=== PATIENT | female | born 1935 | race Caucasian/White ===

== ENCOUNTER 2018-03-10 14:37 | Inpatient (IN) | payer MEDICARE, SELFPAY ==
[2018-03-10] VITALS (8 sets, daily range): BP systolic 121–168; BP diastolic 65–105; PULSE 88–106; RESP 14–22; TEMP 36–36.9; O2SAT 92–99
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
[2018-03-10] MEDS: fentaNYL 100 MCG/2 ML VIAL IVP (15:29)
--- NOTE | 2018-03-10 15:34 | DI.RAD_ITS ---
SYMPTOM/DIAGNOSIS: ANKLE FX LEFT ANKLE: Three views. There is a fracture dislocation of the left ankle. There is a transverse comminuted fracture through the base of the medial malleolus. The distal fracture fragment is displaced one shaft's width laterally. There is a comminuted oblique fracture through the distal left fibula extending to the level of the ankle joint. The fracture is angulated and displaced one shaft's width laterally. There is lateral dislocation of the left ankle. The talus is dislocated laterally and is only covered half way by the tibia. There is also slight posterior displacement of the talus relative to the tibia. There is a question of deformity of the posterior malleolus suspicious for a displaced fracture. Spurs are seen at the posterior calcaneus. There is soft tissue swelling about the ankle. IMPRESSION: Fracture dislocation of the left ankle as described above.
[2018-03-10 15:35] LABS: Abs Immature Grans 0.05 k/cumm (0.0-0.09); Absolute Basophil Count 0.06 k/cumm (0.0-0.2); Absolute Lymphocyte Count 3.92 k/cumm (1.2-3.4); Absolute Monocyte Count 0.78 k/cumm (0.11-0.7); Basophils % 0.6; HCT 36.4 % (36.0-46.0); Immature Grans % 0.5; Lymphocytes % 39.2; Mean Corpuscular Hemoglobin 28.4 pg (27.0-33.0); Mean Corpuscular Volume 86.3 fL (80-95); Mean Platelet Volume 11.2 fL (8.0-11.0); Monocytes % 7.8; Neutrophils % 48.9; Platelet Count 252 x1000/uL (130-400); RBC 4.22 m/cumm (4.00-5.20); RBC Distribution Width 14.1 % (11.7-14.6); White Blood Cell Count 10.01 k/cumm (4.4-10.8)
[2018-03-10 15:54] LABS: PTT Activated 23.9 sec (21.0-31.4); Prothrombin Time 9.4 sec (9.3-10.8)
[2018-03-10 15:58] LABS: ALT 71 U/L (12-78); AST 34 U/L (15-37); Albumin 3.8 g/dL (3.4-5.0); Alkaline Phosphatase 69 U/L (46-116); Anion Gap 12.6 mmol/L (3-11); BUN 28 mg/dL (7-18); Bilirubin, Total 0.3 mg/dL (0.2-1.0); CO2 24.4 mmol/L (21.0-32.0); CREATININE 1.27 mg/dL (0.55-1.02); Calcium 9.1 mg/dL (8.5-10.1); Chloride 100 mmol/L (98-107); Estimated GFR 40.49 (mL/min/1.73m2); Glucose 195 mg/dL (70-100); Potassium 4.3 mmol/L (3.5-5.1); Sodium 137 mmol/L (136-145); Total Protein 7.1 g/dL (6.4-8.2)
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
--- NOTE | 2018-03-10 17:29 | DI.RAD_ITS ---
SYMPTOMS/DIAGNOSIS: ANKLE FX LEFT ANKLE IN THE OR: Fluoroscopy Time: 36.2secs Fluoroscopy was utilized by Dr. Delacruz during the reduction and internal fixation of the left ankle. Sideplate and screws are seen transfixing the reduced distal left fibular fracture. There are percutaneous pins seen transfixing the reduced medial malleolar fracture. The alignment of the ankle appears anatomic. Please refer to the procedure report for complete details.
[2018-03-10] MEDS: Lactated Ringers 1,000 ML 30 ML IV (17:59)
[2018-03-10] MEDS: Ketorolac 15 MG/ML VIAL IVP (22:03)
[2018-03-11] VITALS (8 sets, daily range): BP systolic 115–160; BP diastolic 60–81; PULSE 89–106; RESP 15–19; TEMP 36.4–37.8; O2SAT 95–98
[2018-03-11] MEDS: Acetaminophen 325 MG TAB 650 MG PO ×4 (00:57→23:47)
[2018-03-11] MEDS: Normal Saline Flush 10 ML SYR IVP ×3 (00:57→15:57)
[2018-03-11] MEDS: Normal Saline 1,000 ML 100 ML IV (00:57)
[2018-03-11] MEDS: Ketorolac 15 MG/ML VIAL IVP ×4 (04:25→21:54)
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
[2018-03-11] MEDS: Aspirin 81 MG CHEW PO (07:37)
[2018-03-11] MEDS: Losartan 25 MG TAB PO (07:37)
[2018-03-11] MEDS: Pantoprazole 40 MG TABCR PO (07:37)
[2018-03-11] MEDS: metFORMIN 500 MG TAB 1000 MG PO (07:37)
[2018-03-11] MEDS: Multivitamin w/Minerals TAB 1 TAB PO (07:37)
[2018-03-11] MEDS: Docusate Sodium 100 MG CAP PO ×2 (07:37→19:20)
[2018-03-11] MEDS: glyBURIDE 5 MG TAB PO (08:13)
--- NOTE | 2018-03-11 08:51 | PDOC.CMIN ---
Care Management Initial Assess REASON FOR HOSPITALIZATION:: Ankle Fx-repaired 03/10/[address] 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 She was raised in [place] and has some family still residing in the [place] area. Donna reports she has lived in the [facility] for the last fifty years. 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 She does not have family locally but reports many friends. She is outgoing and reports she wanted to try an [facility] at [facility] when she saw an advertisement in the local paper, which resulted in this injury requiring surgical intervention and admission for recovery. CURRENT FUNCTIONAL STATUS:: Donna is sitting in her chair when meets with her. She is pleasant in interaction and forthcoming with information. ADVANCE DIRECTIVES:: Document provided to Donna. Has patient been provided with information about the portal?: Yes Did the patient sign up for the portal?: No CODE STATUS:: Full Code INSURANCE COVERAGE / FINANCIAL ISSUES:: Medicare. AARP CURRENT HOME/COMMUNITY SERVICES/EQUIPMENT:: No current services or equipment; Donna reports a benign medical history. PRIMARY CARE PHYSICIAN:: Jamia Gaviria POTENTIAL DISCHARGE NEEDS:: PT/OT Consults, FWW, 3-in-1 commode, shower chair, evaluation for rehabiliation needs-likely [facility] PT/OT. PATIENT/FAMILY EDUCATION NEEDS:: Review discharge instructions, discuss Ask Me Three. ANTICIPATED BARRIERS TO DISCHARGE:: None identified. TRANSPORTATION:: Via private vehicle with a friend. PLAN:: Donna will be evaluated for further needs as she recovers from surgery and her pain is managed. Planning central to level of care upon eowswvifb-alqnv-ds-increased services at home. She will have recommendations for DME equipment which this database report writer will support coordination of. Donna reports she has a flight scheduled to return to [place] at the end of March and recovery will depend on changing these plans. She will transport via private vehicle with a friend dependent on disposition.
[2018-03-11] MEDS: Mylanta Suspension 30 ML CUP PO (09:29)
--- NOTE | 2018-03-11 11:42 | PT.INIE ---
Date of service: 03/11/18 Time of Service: 10:55 PT Notes Inpatient Physical Therapy Evaluation Date: 03/11/18 Referring Doctor: Luca Delacruz PT Orders: PT CONSULT: mobilize following ORIF of open trimalleolar fx L ankle. NWB L foot Precautions: Fall precautions, NWB L LE Patient Profile/Admitting Diagnosis: Pt is an 82yr old female s/p open reduction internal fixation left ankle by Dr. Delacruz 03/10/18 PMHX: see medical record Social History/Home Situation: Pt lives alone in a home, 3 steps with railing to enter, no steps inside. Baseline mobility independent gait with no device, independent with ADLS Equipment Owned/DME: none Subjective: Pt sitting in recliner chair visiting with her family. Agreeable to PT consult. Pt states she plans to go home from here and is not interested in a rehab stay. Objective: General Observation: cast L foot Mental Status: A&Ox3 Pain: no c/o pain Bed Mobility/Transfers: Sit-stand: SBA with FWW Stand-sit: SBA Gait: CGA with FWW 20ftx2 NWB L LE. Pt instructed in NWB precautions, pt able to take hop steps on R LE for gait. Pt returned to chair with left LE elevated after gait training. Balance: Static Sitting: normal Dynamic Sitting: normal Static Standing: poor Dynamic Standing: poor Special Tests: Mobility Limitations Standardized Measure [facility] AM-PAC 6 clicks Basic Mobility Inpatient Short Form: Raw Score: 17 Standardized Score: 42.13 CMS Score: 50.57% CMS Modifier: CK Informed Consent/Education: Patient instructed in purpose of PT consult and plan of care. Assessment: Pt is an 82yr old female s/p open reduction internal fixation left ankle by Dr. Delacruz 03/10/18. Patient presents with the following impairment level findings: decreased strength with standing transfers and gait mobility due to NWB status L LE and decreased static and dynamic standing balance putting her at risk for falls. Pt will benefit from in hospital and home PT. She will need a FWW for gait stability due to NWB L LE, she would benefit from 3in1 commode for safe toileting, shower chair for safe bathing and OT consult in hospital and in home setting for instruction in ADLS. Impairments are contributing to the following functional limitations: AMPAC score CMS Score: 50.57% Patient is assessed as a Moderate 11193 complexity based on the following: History: see above Examination: see above Presentation: evolving Decision Making: AMPAC score CMS Score: 50.57% Goals: Goals X1 week 1. Supine-Sit : independent 2. Sit-Supine : independent 3. Sit-Stand : supervision with FWW 4. Stand-Sit : supervision with FWW 5. Bed-Chair : supervision with FWW 6. Chair-Bed : supervision with FWW 7. Gait : supervision with FWW 30ft NWB L 8. Stairs up/down 3 steps with railing and cane, CGA Plan of Care/Treatment Plan: 1-2x/day, 7 days/week x 1 week. Plan of care has been reviewed with the COMMERCIAL BANKER providing the service under Physical Therapy direction. Initiate Physical Therapy intervention for strengthening, bed mobility, transfers, gait, stairs, balance training, use of assistive device. DISCHARGE RECOMMENDATIONS: Home with home PT/OT, commode, FWW, shower chair. * Pt will benefit from OT consult for in hospital setting for instruction in ADLS and dressing TREATMENT CODE/TIME: 25min IE 1055 G Codes in the area mobility of walking and moving around: current status [id number] CK; projected status GP [id number]. Discharge status (if discharging) GP [id number] CK based on AMPAC score CMS Score: 50.57% Ghislaine Morales PT
--- NOTE | 2018-03-11 11:57 | IN_ITS ---
Date of service: 03/11/18 Time of Service: 10:55 PT Notes Inpatient Physical Therapy Evaluation Date: 03/11/18 Referring Doctor: Luca Delacruz PT Orders: PT CONSULT: mobilize following ORIF of open trimalleolar fx L ankle. NWB L foot Precautions: Fall precautions, NWB L LE Patient Profile/Admitting Diagnosis: Pt is an 82yr old female s/p open reduction internal fixation left ankle by Dr. Delacruz 03/10/18 PMHX: see medical record Social History/Home Situation: Pt lives alone in a home, 3 steps with railing to enter, no steps inside. Baseline mobility independent gait with no device, independent with ADLS Equipment Owned/DME: none Subjective: Pt sitting in recliner chair visiting with her family. Agreeable to PT consult. Pt states she plans to go home from here and is not interested in a rehab stay. Objective: General Observation: cast L foot Mental Status: A&Ox3 Pain: no c/o pain Bed Mobility/Transfers: Sit-stand: SBA with FWW Stand-sit: SBA Gait: CGA with FWW 20ftx2 NWB L LE. Pt instructed in NWB precautions, pt able to take hop steps on R LE for gait. Pt returned to chair with left LE elevated after gait training. Balance: Static Sitting: normal Dynamic Sitting: normal Static Standing: poor Dynamic Standing: poor Special Tests: Mobility Limitations Standardized Measure [facility] AM-PAC 6 clicks Basic Mobility Inpatient Short Form: Raw Score: 17 Standardized Score: 42.13 CMS Score: 50.57% CMS Modifier: CK Informed Consent/Education: Patient instructed in purpose of PT consult and plan of care. Assessment: Pt is an 82yr old female s/p open reduction internal fixation left ankle by Dr. Delacruz 03/10/18. Patient presents with the following impairment level findings: decreased strength with standing transfers and gait mobility due to NWB status L LE and decreased static and dynamic standing balance putting her at risk for falls. Pt will benefit from in hospital and home PT. She will need a FWW for gait stability due to NWB L LE, she would benefit from 3in1 commode for safe toileting, shower chair for safe bathing and OT consult in hospital and in home setting for instruction in ADLS. Impairments are contributing to the following functional limitations: AMPAC score CMS Score: 50.57% Patient is assessed as a Moderate 44470 complexity based on the following: History: see above Examination: see above Presentation: evolving Decision Making: AMPAC score CMS Score: 50.57% Goals: Goals X1 week 1. Supine-Sit : independent 2. Sit-Supine : independent 3. Sit-Stand : supervision with FWW 4. Stand-Sit : supervision with FWW 5. Bed-Chair : supervision with FWW 6. Chair-Bed : supervision with FWW 7. Gait : supervision with FWW 30ft NWB L 8. Stairs up/down 3 steps with railing and cane, CGA Plan of Care/Treatment Plan: 1-2x/day, 7 days/week x 1 week. Plan of care has been reviewed with the ORGANIC CHEMISTRY PROFESSOR providing the service under Physical Therapy direction. Initiate Physical Therapy intervention for strengthening, bed mobility, transfers, gait, stairs, balance training, use of assistive device. DISCHARGE RECOMMENDATIONS: Home with home PT/OT, commode, FWW, shower chair. * Pt will benefit from OT consult for in hospital setting for instruction in ADLS and dressing TREATMENT CODE/TIME: 25min IE 1055 G Codes in the area mobility of walking and moving around: current status [id number] CK; projected status GP [id number]. Discharge status (if discharging) GP [id number] CK based on AMPAC score CMS Score: 50.57% Ghislaine Morales PT
--- NOTE | 2018-03-11 12:15 | INITIAL_ITS ---
Care Management Initial Assess REASON FOR HOSPITALIZATION:: Ankle Fx-repaired 03/10/[address] 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 She was raised in [place] and has some family still residing in the [place] area. Donna reports she has lived in the [facility] for the last fifty years. 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 She does not have family locally but reports many friends. She is outgoing and reports she wanted to try an [facility]BIKE at [facility] when she saw an advertisement in the local paper, which resulted in this injury requiring surgical intervention and admission for recovery. CURRENT FUNCTIONAL STATUS:: Donna is sitting in her chair when meets with her. She is pleasant in interaction and forthcoming with information. ADVANCE DIRECTIVES:: Document provided to Donna. Has patient been provided with information about the portal?: Yes Did the patient sign up for the portal?: No CODE STATUS:: Full Code INSURANCE COVERAGE / FINANCIAL ISSUES:: Medicare. AARP CURRENT HOME/COMMUNITY SERVICES/EQUIPMENT:: No current services or equipment; Donna reports a benign medical history. PRIMARY CARE PHYSICIAN:: Jamia Gaviria POTENTIAL DISCHARGE NEEDS:: PT/OT Consults, FWW, 3-in-1 commode, shower chair, evaluation for rehabiliation needs-likely [facility] PT/OT. PATIENT/FAMILY EDUCATION NEEDS:: Review discharge instructions, discuss Ask Me Three. ANTICIPATED BARRIERS TO DISCHARGE:: None identified. TRANSPORTATION:: Via private vehicle with a friend. PLAN:: Donna will be evaluated for further needs as she recovers from surgery and her pain is managed. Planning central to level of care upon discharge-rehab- vs-increased services at home. She will have recommendations for DME equipment which this senior copywriter will support coordination of. Donna reports she has a flight scheduled to return to [place] at the end of March and recovery will depend on changing these plans. She will transport via private vehicle with a friend dependent on disposition.
[2018-03-11 12:52] LABS: HCT 34.2 % (36.0-46.0); HGB 11.4 g/dL (12.0-15.5)
--- NOTE | 2018-03-11 14:01 | CHAPLAIN ---
Donna was sitting up in her chair when I visited. Her niece was with her and she has several more visitors later in the day. Donna was pleasant and easily engaged in a conversation. I introduced myself, explained my role and offered support.
--- NOTE | 2018-03-11 14:01 | PT.INTREAT ---
Date of service: 03/11/18 Time of Service: 14:50 PT Notes Inpatient Physical Therapy Treatment Note Date: 03/11/18 PRECAUTIONS: Fall precautions, NWB L LE SUBJECTIVE: Pt sitting in chair, agreeable to therapy session. States Dr. Delacruz told her she would be NWB for 6weeks. Pt states she is cancelling her trip to [place] and going to stay in the area through [facility]. Pt requesting a 4WW for mobility so she has the option of sitting and mobilizing around the home using her R leg with the 4WW. OBJECTIVE: General observation: cast/dressings L LE PAIN: no c/o pain BED MOBILITY/TRANSFERS Sit-stand: SBA with 4WW Stand-sit: SBA GAIT Assistive Device: 4WW Weight bearing: NWB L LE Assist: SBA Distance: 25ftx1, 1 sit rest, 25ftx1 Deviation: Pt instructed in components of 4WW. Instructed to apply brakes for all sit-stand transfers and to utilize brakes with gait to allow for stability with taking hop steps on R LE. Pt demonstrated ability to utilize 4WW with sit-stand transfers from chair and with gait short distances. Pt instructed in sit-stand transfers ON 4WW to be able to take sitting rest breaks and self propel with R LE around home. Pt was able to perform sit-stand from 4WW with cues for safety. Pt left up in recliner chair with LE elevated. ASSESSMENT: Pt is mobilizing well with transfers and gait with 4WW and FWW maintaining NWB L LE. Pt would benefit from FWW for transfers and gait mobility at night to bedside commode to reduce her risk of falls at night. She would be able to utilize 4WW in day setting, with application of brakes on 4WW at all times for safety, recommend use of sneaker on R LE for increased traction and stability on right foot to maintain balance. Pt will need FWW or 4WW for home mobility due to NWB status 4WW may be best to allow her to take rest breaks and self propel in sitting position in home setting, bedside commode, shower chair and home PT/OT for continued strengthening, training and mobility training is recommended. PLAN: Stair training in am Progress gait training with 4WW Transfer training with 4WW TREATMENT CODE/TIME: 27min [id number] Ghislaine Morales PT
--- NOTE | 2018-03-11 14:09 | PTTR_ITS ---
Date of service: 03/11/18 Time of Service: 14:50 PT Notes Inpatient Physical Therapy Treatment Note Date: 03/11/18 PRECAUTIONS: Fall precautions, NWB L LE SUBJECTIVE: Pt sitting in chair, agreeable to therapy session. States Dr. Delacruz told her she would be NWB for 6weeks. Pt states she is cancelling her trip to [place] and going to stay in the area through [facility]. Pt requesting a 4WW for mobility so she has the option of sitting and mobilizing around the home using her R leg with the 4WW. OBJECTIVE: General observation: cast/dressings L LE PAIN: no c/o pain BED MOBILITY/TRANSFERS Sit-stand: SBA with 4WW Stand-sit: SBA GAIT Assistive Device: 4WW Weight bearing: NWB L LE Assist: SBA Distance: 25ftx1, 1 sit rest, 25ftx1 Deviation: Pt instructed in components of 4WW. Instructed to apply brakes for all sit-stand transfers and to utilize brakes with gait to allow for stability with taking hop steps on R LE. Pt demonstrated ability to utilize 4WW with sit -stand transfers from chair and with gait short distances. Pt instructed in sit- stand transfers ON 4WW to be able to take sitting rest breaks and self propel with R LE around home. Pt was able to perform sit-stand from 4WW with cues for safety. Pt left up in recliner chair with LE elevated. ASSESSMENT: Pt is mobilizing well with transfers and gait with 4WW and FWW maintaining NWB L LE. Pt would benefit from FWW for transfers and gait mobility at night to bedside commode to reduce her risk of falls at night. She would be able to utilize 4WW in day setting, with application of brakes on 4WW at all times for safety, recommend use of sneaker on R LE for increased traction and stability on right foot to maintain balance. Pt will need FWW or 4WW for home mobility due to NWB status 4WW may be best to allow her to take rest breaks and self propel in sitting position in home setting, bedside commode, shower chair and home PT/OT for continued strengthening, training and mobility training is recommended. PLAN: Stair training in am Progress gait training with 4WW Transfer training with 4WW TREATMENT CODE/TIME: 27min TAx2 [id number] Ghislaine Morales PT
--- NOTE | 2018-03-11 14:16 | PHARADMIT ---
Admission Pharmacy Clinical Review displaced bimalleolar fracture of left ankle Code Status Full Code Current Weight 78 kg Renally Cleared and Narrow Therapeutic Index Meds Crcl ~36.5 mL/min using adjusted body weight current meds okay QTc Value / Action Taken BP Control, Fever BP 158/73 afebrile Electrolytes reviewed within normal limits DVT Prophylaxis none Opiate Usage / Scheduled Bowel Regimen Ordered prn/scheduled docusate Plt/SCr for Heparin / Enoxaparin plt 252 SCr 1.27 INR for Warfarin n/a H/H stable, WBC/Bands h/h 11.4/34.2 wbc 10.01 Antibiotic appropriateness cefazolin Cultures and Sensitivities none Surgical ABX d/c within 24 hr yes due to stop within 24 hours postop DM control / Insulin Dosing FSBG 133 glyburide and metformin ordered, no insulin Heart Failure (Check EF%) (DAGOBERTO's, B-Block, Diuretics) losartan IV to PO Switch n/a Home Meds Reviewed yes Home Meds Not Ordered cinnamon bark, flaxseed oil, omega-3 Comments
--- NOTE | 2018-03-11 14:47 | W.PM.PROGNOT ---
Assessment and Plan (1) Bimalleolar fracture of left ankle: Start date: 03/10/18 Start time: 14:50 Current visit: Yes Status: Acute Assessment: Stable postop day #1 irrigation and debridement of open trimalleolar fracture dislocation of the left ankle with ORIF. I do not know what to make of the abnormal stool she had today. Her preop hemoglobin was 12 g. She has no history of any bleeding disorder with a normal coagulation profile. Plan: We will check her hemoglobin today. If there is no significant drop in the hemoglobin, would just observe her and hematest her stools. We will give her IV antibiotics for another 24 hours for her open fracture. We will continue to mobilize with physical therapy nonweightbearing on the left. Would DC home when independent with transfers and taking only p.o. pain meds. Subjective Patient reports: feels better and tolerating a regular diet Interval history since last seen: She says her pain is well controlled. Exam Narrative Exam Narrative: Nurses reported that she had a gelatinous, red bowel movement today. Patient reported that this is not usual for her. Her preop hemoglobin was 12.0 g. She actively flexes and extends the toes of her left foot fully without pain. No swelling of the toes. Good light touch sensation to the toes. There is good capillary refill of the toes. Objective Objective Clinical Data: Abnormal lab results 03/10/18 03/10/18 03/11/18 Range/Units 15:05 15:05 12:40 Hgb 11.4 L (12.0-15.5) g/dL Hct 34.2 L (36.0-46.0) % MPV 11.2 H (8.0-11.0) fL Absolute Lymphocytes 3.92 H (1.2-3.4) k/cumm Absolute Monocytes 0.78 H (0.11-0.7) k/cumm Anion Gap 12.6 H (3-11) mmol/L BUN 28 H (7-18) mg/dL Creatinine 1.27 H (0.55-1.02) mg/dL Glucose 195 H (70-100) mg/dL Vital Signs Temperature 36.4 C L 03/11/18 11:20 Temperature Source Tympanic 03/11/18 11:20 Pulse 93 H 03/11/18 11:20 Pulse Rhythm Regular 03/11/18 07:35 Respiratory Rate 19 03/11/18 11:20 Respiratory Effort Non-Labored 03/11/18 07:35 Respiratory Depth Normal 03/11/18 07:35 Respiratory Pattern Normal 03/11/18 07:35 Blood Pressure 158/73 H 03/11/18 11:20 Blood Pressure Position Supine 03/10/18 15:21 Pulse Oximetry 97 03/11/18 11:20 Respiratory End-tidal CO2 41 03/10/18 20:30 Oxygen Delivery Method Room Air 03/11/18 11:20 Oxygen Flow Rate 0 03/11/18 11:20 End Tidal Co2 26 03/10/18 15:21 Pain Level 3 03/11/18 09:20 Intake & Output 03/10/18 03/11/18 03/11/18 23:59 11:59 23:59 Intake Total 642 / 642 1224.333 / 1224.333 240 / 240 Output Total 1050 / 1050 700 / 700 Balance -408 / -408 524.333 / 524.333 240 / 240 Weight 78 kg Intake: IV 642 / 642 824.333 / 824.333 Oral 400 / 400 240 / 240 Output: Urine 950 / 950 700 / 700 Estimated Blood Loss 100 / 100 Other: Urine Color Dark Sharona Yellow Urine Appearance Clear Clear Urine Odor None Comment Unknown amount of urine output as it was mixed with stool. Stool Size Moderate Large Stool Characteristics Soft Liquid Formed Brown Bloody Emesis Description None Voiding Methods Toilet Bedside Commode Laboratory Results WBC 10.01 k/cumm (4.4-10.8) 03/10/18 15:05 RBC 4.22 m/cumm (4.00-5.20) 03/10/18 15:05 Hgb 11.4 g/dL (12.0-15.5) L 03/11/18 12:40 Hct 34.2 % (36.0-46.0) L 03/11/18 12:40 MCV 86.3 fL (80-95) 03/10/18 15:05 MCH 28.4 pg (27.0-33.0) 03/10/18 15:05 MCHC 33.0 g/dL (32.0-36.0) 03/10/18 15:05 RDW 14.1 % (11.7-14.6) 03/10/18 15:05 Plt Count 252 x1000/uL (130-400) 03/10/18 15:05 MPV 11.2 fL (8.0-11.0) H 03/10/18 15:05 Immature Gran % 0.5 03/10/18 15:05 Neutrophils % 48.9 03/10/18 15:05 Lymphocytes % 39.2 03/10/18 15:05 Monocytes % 7.8 03/10/18 15:05 Eosinophils % 3.0 03/10/18 15:05 Basophils % 0.6 03/10/18 15:05 Absolute Neutrophils 4.90 k/cumm (1.2-6.7) 03/10/18 15:05 Absolute Lymphocytes 3.92 k/cumm (1.2-3.4) H 03/10/18 15:05 Absolute Monocytes 0.78 k/cumm (0.11-0.7) H 03/10/18 15:05 Absolute Eosinophils 0.30 k/cumm (0.0-0.7) 03/10/18 15:05 Absolute Basophils 0.06 k/cumm (0.0-0.2) 03/10/18 15:05 PT 9.4 sec (9.3-10.8) 03/10/18 15:05 INR 1.0 (1.0-3.5) 03/10/18 15:05 APTT 23.9 sec (21.0-31.4) 03/10/18 15:05 Sodium 137 mmol/L (136-145) 03/10/18 15:05 Potassium 4.3 mmol/L (3.5-5.1) 03/10/18 15:05 Chloride 100 mmol/L (98-107) 03/10/18 15:05 Carbon Dioxide 24.4 mmol/L (21.0-32.0) 03/10/18 15:05 Anion Gap 12.6 mmol/L (3-11) H 03/10/18 15:05 BUN 28 mg/dL (7-18) H 03/10/18 15:05 Creatinine 1.27 mg/dL (0.55-1.02) H 03/10/18 15:05 Estimated GFR/1.73 m2 40.49 (mL/min/1.73m2) 03/10/18 15:05 Glucose 195 mg/dL (70-100) H 03/10/18 15:05 Calcium 9.1 mg/dL (8.5-10.1) 03/10/18 15:05 Total Bilirubin 0.3 mg/dL (0.2-1.0) 03/10/18 15:05 AST 34 U/L (15-37) 03/10/18 15:05 ALT 71 U/L (12-78) 03/10/18 15:05 Alkaline Phosphatase 69 U/L (46-116) 03/10/18 15:05 Total Protein 7.1 g/dL (6.4-8.2) 03/10/18 15:05 Albumin 3.8 g/dL (3.4-5.0) 03/10/18 15:05 Patient ABO/Rh O Positive 03/10/18 15:05 Antibody Screen Negative 03/10/18 15:05
[2018-03-11] MEDS: Normal Saline 1,000 ML 60 ML IV (16:17)
[2018-03-12] MEDS: Ketorolac 15 MG/ML VIAL IVP ×2 (03:44→11:06)
[2018-03-12 03:48] VITALS: BP 142/80; PULSE 88; RESP 18; TEMP 37.2; O2SAT 96
[2018-03-12 07:50] VITALS: BP 156/74; PULSE 90; RESP 19; TEMP 36.5; O2SAT 95
--- NOTE | 2018-03-12 08:25 | PT.INTREAT ---
Date of service: 03/12/18 Time of Service: 08:26 PT Notes Inpatient Physical Therapy Treatment Note Date: 03/12/18 PRECAUTIONS: NWB on L, fall SUBJECTIVE: Eva states that she is feeling pretty good today, she was able to get good sleep last night. OBJECTIVE: PAIN: No complaints of pain BED MOBILITY/TRANSFERS Sit-stand: SBA Stand-sit: SBA GAIT Assistive Device: 4WW Weight bearing: NWB on L Assist: SBA Distance: 25' x2 Seated forward self-propulsion with 4WW 25' x2 with Min A ASSESSMENT: Patient tolerated session without complaints of pain. She fatigues with gait training due to weight bear status. Patient practiced seated forward self propulsion using 4WW, requiring Min A. PLAN: Continue with PTs POC TREATMENT CODE/TIME: 25 minutes; TA x2
[2018-03-12] MEDS: Docusate Sodium 100 MG CAP PO ×2 (08:26→13:53)
[2018-03-12] MEDS: Aspirin 81 MG CHEW PO (08:26)
[2018-03-12] MEDS: Losartan 25 MG TAB PO (08:27)
[2018-03-12] MEDS: Pantoprazole 40 MG TABCR PO (08:27)
[2018-03-12] MEDS: metFORMIN 500 MG TAB 1000 MG PO (08:27)
[2018-03-12] MEDS: glyBURIDE 5 MG TAB PO (08:27)
[2018-03-12] MEDS: Multivitamin w/Minerals TAB 1 TAB PO (08:27)
[2018-03-12 09:30] VITALS: O2SAT 95
[2018-03-12] MEDS: Normal Saline 1,000 ML 60 ML IV (11:06)
[2018-03-12 11:30] VITALS: BP 149/71; PULSE 85; RESP 18; TEMP 36.8; O2SAT 96
--- NOTE | 2018-03-12 12:24 | W.PM.DS.N ---
Date of service: 03/12/18 Time of Service: 12:25 DS: Diagnosis Discharge Diagnosis (1) Bimalleolar fracture of left ankle: Status: Ruled-out Discharge Plan Disposition Patient Disposition: HOME Condition: Good Discharge Details Chief Complaint: Orthopedic Reason For Visit: OPEN TRIMALLEOLAR FX/DISLOCATION L ANKLE Admit Date/Time: 03/10/18 19:48 Admit Provider: Luca Delacruz Attending Provider: Luca Delacruz Primary Care Provider: Jamia Gaviria ED Provider: Humera Bro Hospital Course Hospital Course: Patient was taken to the operating room on the day of admission 03/10/2018 for irrigation and debridement of open trimalleolar fracture of her left ankle, followed by open reduction and internal fixation of the trimalleolar fracture. She was admitted for pain control and IV antibiotics for 48 hours. She remained afebrile throughout her hospital course. She required very little postop analgesics. She was surprised by how little pain she experienced peer area. By 2 PM on 03/12/2018 she had completed 48 hours of IV antibiotics. She was afebrile she was afebrile and requiring very little pain medicines. She had completed her acute care phase of her hospitalization and I thought she was safe to be discharged home. Home Meds and New Rx's Prescriptions: New hydrocodone-acetaminophen 5-325 mg tablet 1 tab PO Q6H PRN (Reason: pain) Qty: 14 RF: 0 ibuprofen 600 mg tablet 600 mg PO TID Qty: 30 RF: 0 Continue glyburide 5 mg Tablet 5 mg PO DAILY RF: 0 metformin 1,000 mg Tablet 1,000 mg PO DAILY RF: 0 losartan 25 mg Tablet RF: 0 flaxseed oil 1,000 mg Capsule RF: 0 aspirin 81 mg Tablet,Chewable RF: 0 cinnamon bark [Cinnamon] 500 mg Capsule RF: 0 omega 4-csr-cvr-fish oil [Fish Oil] 1,000 mg (120 mg-180 mg) Capsule RF: 0 atjfwmem-gjsl-MC-calcium-mins [Women's One Daily] 18 mg iron-400 mcg-500 mg Ca Tablet RF: 0 Discharge Instructions Additional Instructions: Elevate L ankle on 1-2 pillows when sitting. Use walker to walk. Don't step on L foot. May rest splint on floor for balance when standing.(i.e. when brushing your teeth) Keep splint and dressings dry and intact until return. Return to 's office next 03/20/18. Take ibuprofen 3 times/day as prescribed. Take hydrocodone for breakthru pain, every 6 hours, if needed. Referrals: Jamia Gaviria [Primary Care Provider] - 03/24/18 2:55 pm Luca Delacruz MD [ [facility] STAFF PHYSICIAN] - 03/20/18 10:00 am Activity:: Activity as Tolerated Equipment/Supplies:: Walker Diet:: As Tolerated Discharge Orders Discharge Orders: Discharge Order (Routine); Ordered 03/12/18 Ordered By: Luca Delacruz DS: Data Vitals/I&O Vitals and I&O: Vital Signs Temperature 36.8 C 03/12/18 11:30 Temperature Source Tympanic 03/12/18 11:30 Pulse 85 03/12/18 11:30 Pulse Rhythm Regular 03/12/18 10:00 Respiratory Rate 18 03/12/18 11:30 Respiratory Effort Non-Labored 03/12/18 10:00 Respiratory Depth Normal 03/12/18 10:00 Respiratory Pattern Normal 03/12/18 10:00 Blood Pressure 149/71 H 03/12/18 11:30 Blood Pressure Position Supine 03/10/18 15:21 Pulse Oximetry 96 03/12/18 11:30 Respiratory End-tidal CO2 41 03/10/18 20:30 Oxygen Delivery Method Room Air 03/12/18 11:30 Oxygen Flow Rate 0 03/12/18 11:30 End Tidal Co2 26 03/10/18 15:21 Pain Level 3 03/12/18 11:30 Intake & Output 03/11/18 03/12/18 03/12/18 23:59 11:59 23:59 Intake Total 1487.667 / 1487.667 929 / 929 Output Total 1400 / 1400 500 / 500 Balance 87.667 / 87.667 429 / 429 Intake: IV 557.667 / 557.667 929 / 929 Oral 930 / 930 Output: Urine 1400 / 1400 500 / 500 Other: Urine Color Mignon Yellow Urine Appearance Hematuria Clear Urine Odor Strong Voiding Methods Bedside Commode Bedside Commode Labs on day of discharge: Labs from last 24 hours 03/11/18 12:40 Hgb 11.4 L Hct 34.2 L
--- NOTE | 2018-03-12 12:29 | DSE_ITS ---
Date of service: 03/12/18 Time of Service: 12:25 DS: Diagnosis Discharge Diagnosis (1) Bimalleolar fracture of left ankle: Status: Ruled-out Discharge Plan Disposition Patient Disposition: HOME Condition: Good Discharge Details Chief Complaint: Orthopedic Reason For Visit: OPEN TRIMALLEOLAR FX/DISLOCATION L ANKLE Admit Date/Time: 03/10/18 19:48 Admit Provider: Luca Delacruz Attending Provider: Luca Delacruz Primary Care Provider: Jamia Gaviria ED Provider: Humera Bro Hospital Course Hospital Course: Patient was taken to the operating room on the day of admission 03/10/2018 for irrigation and debridement of open trimalleolar fracture of her left ankle, followed by open reduction and internal fixation of the trimalleolar fracture. She was admitted for pain control and IV antibiotics for 48 hours. She remained afebrile throughout her hospital course. She required very little postop analgesics. She was surprised by how little pain she experienced peer area. By 2 PM on 03/12/2018 she had completed 48 hours of IV antibiotics. She was afebrile she was afebrile and requiring very little pain medicines. She had completed her acute care phase of her hospitalization and I thought she was safe to be discharged home. Home Meds and New Rx's Prescriptions: New hydrocodone-acetaminophen 5-325 mg tablet 1 tab PO Q6H PRN (Reason: pain) Qty: 14 RF: 0 ibuprofen 600 mg tablet 600 mg PO TID Qty: 30 RF: 0 Continue glyburide 5 mg Tablet 5 mg PO DAILY RF: 0 metformin 1,000 mg Tablet 1,000 mg PO DAILY RF: 0 losartan 25 mg Tablet RF: 0 flaxseed oil 1,000 mg Capsule RF: 0 aspirin 81 mg Tablet,Chewable RF: 0 cinnamon bark [Cinnamon] 500 mg Capsule RF: 0 omega 7-aqz-beo-fish oil [Fish Oil] 1,000 mg (120 mg-180 mg) Capsule RF: 0 qvjnzsny-rdfa-ZQ-calcium-mins [Women's One Daily] 18 mg iron-400 mcg-500 mg Ca Tablet RF: 0 Discharge Instructions Additional Instructions: Elevate L ankle on 1-2 pillows when sitting. Use walker to walk. Don't step on L foot. May rest splint on floor for balance when standing.(i.e. when brushing your teeth) Keep splint and dressings dry and intact until return. Return to 's office next 03/20/18. Take ibuprofen 3 times/day as prescribed. Take hydrocodone for breakthru pain, every 6 hours, if needed. Referrals: Jamia Gaviria [Primary Care Provider] - 03/24/18 2:55 pm Luca Delacruz MD [ [facility] STAFF PHYSICIAN] - 03/20/18 10:00 am Activity:: Activity as Tolerated Equipment/Supplies:: Walker Diet:: As Tolerated Discharge Orders Discharge Orders: Discharge Order (Routine); Ordered 03/12/18 Ordered By: Luca Delacruz DS: Data Vitals/I&O Vitals and I&O: Vital Signs Temperature 36.8 C 03/12/18 11:30 Temperature Source Tympanic 03/12/18 11:30 Pulse 85 03/12/18 11:30 Pulse Rhythm Regular 03/12/18 10:00 Respiratory Rate 18 03/12/18 11:30 Respiratory Effort Non-Labored 03/12/18 10:00 Respiratory Depth Normal 03/12/18 10:00 Respiratory Pattern Normal 03/12/18 10:00 Blood Pressure 149/71 H 03/12/18 11:30 Blood Pressure Position Supine 03/10/18 15:21 Pulse Oximetry 96 03/12/18 11:30 Respiratory End-tidal CO2 41 03/10/18 20:30 Oxygen Delivery Method Room Air 03/12/18 11:30 Oxygen Flow Rate 0 03/12/18 11:30 End Tidal Co2 26 03/10/18 15:21 Pain Level 3 03/12/18 11:30 Intake & Output 03/11/18 03/12/18 03/12/18 23:59 11:59 23:59 Intake Total 1487.667 / 1487.667 929 / 929 Output Total 1400 / 1400 500 / 500 Balance 87.667 / 87.667 429 / 429 Intake: IV 557.667 / 557.667 929 / 929 Oral 930 / 930 Output: Urine 1400 / 1400 500 / 500 Other: Urine Color Braxton Yellow Urine Appearance Hematuria Clear Urine Odor Strong Voiding Methods Bedside Commode Bedside Commode Labs on day of discharge: Labs from last 24 hours 03/11/18 12:40 Hgb 11.4 L Hct 34.2 L
--- NOTE | 2018-03-12 12:56 | OT.INIE ---
Occupational Therapy Notes Inpatient Occupational Therapy Evaluation Date: 03/12/18 Referring Doctor:Luca Delacruz MD OT Orders: Per PT, please have OT see her. Precautions:Fall precautions, NWB L LE PATIENT PROFILE/ADMITTING DIAGNOSIS: Pt is am 82 year old female seen for OT consult s/p open reduction internal fixation left ankle by Dr. Delacruz 03/10/18. Past Medical History: See EMR Social History/Home Situation: Pt reports that she lives alone in a home in [place]. She has 3 steps with railing to enter, no steps inside. She reports that her baseline ADL/IADL function was (I). She has a walk in shower with tile floor for her bathroom set up. Equipment owned/DME: None SUBJECTIVE: Pt sitting in chair when OT arrived with (L) leg elevated. Pt reports that she is going home later today and that she thinks she will feel better once she gets there. OBJECTIVE: General Observation: Cast (L) foot, IV (L) UE Mental Status: A&Ox3 Pain: no c/o pain ROM: RUE WNL L UE WNL STRENGTH: RUE 5 out of 5 throughout LUE 5 out of 5 throughout SENSATION: Patient reports no numbness or tingling in bilateral upper extremities. FUNCTIONAL MOBILITY/ADLS: Sit-Stand S, FWW Stand-sit S, FWW DRESSING Dressing LE with min assist to patient able to perform lower extremity dressing and underwear with minimal verbal cues. Patient provided a data warehouse specialist to assist with pulling up of pain. Patient also provided written and illustrated handout and dressing techniques in the sitting position in the chair. Patient able to demonstrate ideal technique. TOILETING: On commode, patient independently able to perform toileting routine and hygiene. BALANCE: Static sitting normal Dynamic Sitting normal Static Standing good based on weight bearing precautions Dynamic Standing good based on weight bearing precautions SPECIAL TESTS: Daily Activity Limitations Standardized Measure [facility] AM -PAC ?6 clicks? Daily Activity Inpatient Short Form: Raw score: 22 standardized score: 47.10 CMS score: 25.80% CMS modifier: CJ INFORMED CONSENT/EDUCATION: Pt instructed in purpose of OT Consult and plan of care. ASSESSMENT: Pt is an 82 year old female s/p open reduction internal fixation left ankle by Dr. Delacruz 03/10/18. Patient was seen for OT consult only demonstrating decreased need for verbal cues to perform ADL routine. Patient educated on use of data warehouse specialist for lower extremity dressing which she demonstrated with ideal technique. Patient denies need for home OT/PT services at this time. Patient would benefit from bed side commode as she is nonweightbearing to left lower extremity due to decreased functional activity tolerance. This would provide a safe toileting routine for patient. Patient would also benefit from shower chair or bench for safe bathing patient has tile floor and walk in shower. OT also recommends patient use FWW for non weight bearing precautions. Patient reports that he has throw rugs in her home OT educated patient on increased fall risks due to rugs. Patient receptive to information however states that she does not plan to get red of her rugs at this time. OT also educated patient on home in energy conservation and kitchen. Patient was receptive to information however slight denial that ADL routine with be different than prior. OT provided patient with written and illustrated handout on functional mobility in the kitchen with front-wheeled walker and energy conservation techniques.Patient no longer requires skilled OT services. Recommend patient to return home with use of adaptive equipment to increase independence and safe ADL/IADL routines. D/C OT services at this time. AMPAC score 22, CMS score 25.80% Patient is assessed as a Low 35762 complexity based on the following: History: See EMR Examination: See above Presentation: Evolving Decision Making: AMPAC score 22, CMS score 25.80% GOALS N/A PLAN OF CARE/TREATMENT PLAN: DISCHARGE RECOMMENDATIONS home with use of adaptive equipment. TREATMENT TIME/MINUTES/CODES 38-minute IE, 09:17 G Codes in the area of self- : washing oneself, toileting, dressing, eating and drinking, current status [id number] projected status GP [id number]. Discharge status GP [id number]
--- NOTE | 2018-03-12 13:16 | OTIE_ITS ---
Occupational Therapy Notes Inpatient Occupational Therapy Evaluation Date: 03/12/18 Referring Doctor:Luca Delacruz MD OT Orders: Per PT, please have OT see her. Precautions:Fall precautions, NWB L LE PATIENT PROFILE/ADMITTING DIAGNOSIS: Pt is am 82 year old female seen for OT consult s/p open reduction internal fixation left ankle by Dr. Delacruz 03/10/18. Past Medical History: See EMR Social History/Home Situation: Pt reports that she lives alone in a home in [place]. She has 3 steps with railing to enter, no steps inside. She reports that her baseline ADL/IADL function was (I). She has a walk in shower with tile floor for her bathroom set up. Equipment owned/DME: None SUBJECTIVE: Pt sitting in chair when OT arrived with (L) leg elevated. Pt reports that she is going home later today and that she thinks she will feel better once she gets there. OBJECTIVE: General Observation: Cast (L) foot, IV (L) UE Mental Status: A&Ox3 Pain: no c/o pain ROM: RUE WNL L UE WNL STRENGTH: RUE 5 out of 5 throughout LUE 5 out of 5 throughout SENSATION: Patient reports no numbness or tingling in bilateral upper extremities. FUNCTIONAL MOBILITY/ADLS: Sit-Stand S, FWW Stand-sit S, FWW DRESSING Dressing LE with min assist to patient able to perform lower extremity dressing and underwear with minimal verbal cues. Patient provided a mixed crop farmer to assist with pulling up of pain. Patient also provided written and illustrated handout and dressing techniques in the sitting position in the chair. Patient able to demonstrate ideal technique. TOILETING: On commode, patient independently able to perform toileting routine and hygiene. BALANCE: Static sitting normal Dynamic Sitting normal Static Standing good based on weight bearing precautions Dynamic Standing good based on weight bearing precautions SPECIAL TESTS: Daily Activity Limitations Standardized Measure [facility] AM -PAC ?6 clicks? Daily Activity Inpatient Short Form: Raw score: 22 standardized score: 47.10 CMS score: 25.80 % CMS modifier: CJ INFORMED CONSENT/EDUCATION: Pt instructed in purpose of OT Consult and plan of care. ASSESSMENT: Pt is an 82 year old female s/p open reduction internal fixation left ankle by Dr. Delacruz 03/10/18. Patient was seen for OT consult only demonstrating decreased need for verbal cues to perform ADL routine. Patient educated on use of mixed crop farmer for lower extremity dressing which she demonstrated with ideal technique. Patient denies need for home OT/PT services at this time. Patient would benefit from bed side commode as she is nonweightbearing to left lower extremity due to decreased functional activity tolerance. This would provide a safe toileting routine for patient. Patient would also benefit from shower chair or bench for safe bathing patient has tile floor and walk in shower. OT also recommends patient use FWW for non weight bearing precautions. Patient reports that he has throw rugs in her home OT educated patient on increased fall risks due to rugs. Patient receptive to information however states that she does not plan to get red of her rugs at this time. OT also educated patient on home in energy conservation and kitchen. Patient was receptive to information however slight denial that ADL routine with be different than prior. OT provided patient with written and illustrated handout on functional mobility in the kitchen with front-wheeled walker and energy conservation techniques.Patient no longer requires skilled OT services. Recommend patient to return home with use of adaptive equipment to increase independence and safe ADL/IADL routines. D/C OT services at this time. AMPAC score 22, CMS score 25.80% Patient is assessed as a Low 49785 complexity based on the following: History: See EMR Examination: See above Presentation: Evolving Decision Making: AMPAC score 22, CMS score 25.80% GOALS N/A PLAN OF CARE/TREATMENT PLAN: DISCHARGE RECOMMENDATIONS home with use of adaptive equipment. TREATMENT TIME/MINUTES/CODES 38-minute IE, 09:17 G Codes in the area of self- : washing oneself, toileting, dressing, eating and drinking, current status [id number] projected status GP [id number]. Discharge status GP [id number]
--- NOTE | 2018-03-12 13:16 | W.PM.DS.N ---
DS: Diagnosis Discharge Diagnosis (1) Bimalleolar fracture of left ankle: Status: Ruled-out Discharge Plan Disposition Patient Disposition: HOME Condition: Good Discharge Details Chief Complaint: Orthopedic Reason For Visit: OPEN TRIMALLEOLAR FX/DISLOCATION L ANKLE Admit Date/Time: 03/10/18 19:48 Admit Provider: Luca Delacruz Attending Provider: Luca Delacruz Primary Care Provider: Jamia Gaviria ED Provider: Humera Bro Hospital Course Hospital Course: Patient was taken to the operating room on the day of admission 03/10/2018 for irrigation and debridement of open trimalleolar fracture of her left ankle, followed by open reduction and internal fixation of the trimalleolar fracture. She was admitted for pain control and IV antibiotics for 48 hours. She remained afebrile throughout her hospital course. She required very little postop analgesics. She was surprised by how little pain she experienced peer area. By 2 PM on 03/12/2018 she had completed 48 hours of IV antibiotics. She was afebrile she was afebrile and requiring very little pain medicines. She had completed her acute care phase of her hospitalization and I thought she was safe to be discharged home. Home Meds and New Rx's Prescriptions: New hydrocodone-acetaminophen 5-325 mg tablet 1 tab PO Q6H PRN (Reason: pain) Qty: 14 RF: 0 ibuprofen 600 mg tablet 600 mg PO TID Qty: 30 RF: 0 Continue glyburide 5 mg Tablet 5 mg PO DAILY RF: 0 metformin 1,000 mg Tablet 1,000 mg PO DAILY RF: 0 losartan 25 mg Tablet RF: 0 flaxseed oil 1,000 mg Capsule RF: 0 aspirin 81 mg Tablet,Chewable RF: 0 cinnamon bark [Cinnamon] 500 mg Capsule RF: 0 omega 4-cls-den-fish oil [Fish Oil] 1,000 mg (120 mg-180 mg) Capsule RF: 0 xapnmonx-olxb-JG-calcium-mins [Women's One Daily] 18 mg iron-400 mcg-500 mg Ca Tablet RF: 0 Discharge Instructions Instructions: ORIF of an Ankle Fracture (DC) Additional Instructions: Elevate L ankle on 1-2 pillows when sitting. Use walker to walk. Don't step on L foot. May rest splint on floor for balance when standing.(i.e. when brushing your teeth) Keep splint and dressings dry and intact until return. Return to 's office next 03/26/18. Take ibuprofen 3 times/day as prescribed. Take hydrocodone for breakthru pain, every 6 hours, if needed. Stand Alone Forms: Nursing Discharge Form Referrals: Jamia Gaviria [Primary Care Provider] - 03/24/18 2:55 pm Luca Delacruz MD [ [facility] STAFF PHYSICIAN] - 03/26/18 10:45 am Activity:: Activity as Tolerated Equipment/Supplies:: 3 in 1 commode/shower chair Diet:: As Tolerated Discharge Orders Discharge Orders: Discharge Order (Routine); Ordered 03/12/18 Ordered By: Luca Delacruz Discharge Data Discharge Date/Time-TO BE ENTERED AT DEPARTURE: 03/12/18 15:30 DS: Data Vitals/I&O Vitals and I&O: Vital Signs Temperature 36.8 C 03/12/18 11:30 Temperature Source Tympanic 03/12/18 11:30 Pulse 85 03/12/18 11:30 Pulse Rhythm Regular 03/12/18 10:00 Respiratory Rate 18 03/12/18 11:30 Respiratory Effort Non-Labored 03/12/18 10:00 Respiratory Depth Normal 03/12/18 10:00 Respiratory Pattern Normal 03/12/18 10:00 Blood Pressure 149/71 H 03/12/18 11:30 Blood Pressure Position Supine 03/10/18 15:21 Pulse Oximetry 96 03/12/18 11:30 Respiratory End-tidal CO2 41 03/10/18 20:30 Oxygen Delivery Method Room Air 03/12/18 11:30 Oxygen Flow Rate 0 03/12/18 11:30 End Tidal Co2 26 03/10/18 15:21 Pain Level 3 03/12/18 11:30 Intake & Output 03/11/18 03/12/18 03/12/18 23:59 11:59 23:59 Intake Total 1487.667 / 1487.667 929 / 929 250 / 250 Output Total 1400 / 1400 500 / 500 Balance 87.667 / 87.667 429 / 429 250 / 250 Intake: IV 557.667 / 557.667 929 / 929 Oral 930 / 930 250 / 250 Output: Urine 1400 / 1400 500 / 500 Other: Urine Color [place] Yellow Urine Appearance Hematuria Clear Urine Odor Strong Voiding Methods Bedside Commode Bedside Commode
--- NOTE | 2018-03-12 13:17 | PDOC.HHF2F ---
1. Encounter Date and Reason I certify that ANTONIO NOGUERA was seen by Luca Delacruz on 03/12/18 and that I had a [id number] encounter with this patient that meets the physician face to face encounter requirements. 2. Clinical Findings Supporting Skilled Need and Homebound Status I certify that home health services are medically necessary, include either intermittent shelter and/or physical/speech therapy, and that this patient is homebound in that absences from the home require considerable and taxing effort and are infrequent or of short duration, or are attributable to the need to receive medical care. [X] (a) Attached documentation from encounter provides clinical findings supporting skilled need and homebound status (including what assistance patient requires to leave the home). The encounter with the patient was in whole, or in part, for the following medical condition, which is the primary reason for home health care: OPEN TRIMALLEOLAR FX/DISLOCATION L ANKLE [facility]itent[facility]: Physical Therapy: and Occupational therapy Speech Therapy: Homebound:NWB on L leg due to trimalleolar fx ankle. Can't drive. Lives alone. 3. Certification and Authentication I certify that I composed the above information based on my clinical judgement relating to this patient's medical condition and, if applicable, clinical findings communicated to me by the NPP or inpatient physician who performed the Home Health Referral. All further orders will be obtained through (Community Based Physician - PCP)
--- NOTE | 2018-03-12 14:23 | PDOC.CMDIS ---
LACE Index Scoring Tool - Questions: Length of Stay (in days): 3 Acuity (Admit via E.D.?): Yes Comorbidities: Diabetes w/o Complication, Any Tumor E.D. Visits: 1 - Answers: Total Score: 10 Risk of Readmission: High Risk Care Management Discharge Reason for Hospitalization: Ankle Fx-repaired 03/10/[address] Delacruz Discharge Plan: Donna will return home when ready per MD. She will follow up with Dr. Delacruz, her PCP and her plan of care as prescribed including NWB status and equipment recommendations to include shower chair, 3 in 1 commode and FWW. She will also have new orders for [facility] PT[facility]; CM faxed referral and orders to the [facility]. Donna will transport home via private vehicle with a friend. Patient/Family Education Needs: Review discharge instructions, review of DME coordination-patient choice and insurance limitations, discuss Ask Me Three. Services Needed at Discharge: DME Agency (FWW, review of patient choice and insurance limitations for recommended bathroom equipment. ), Home Health Care Services (PT/OT)
--- NOTE | 2018-03-12 14:27 | CMDISCH_ITS ---
LACE Index Scoring Tool - Questions: Length of Stay (in days): 3 Acuity (Admit via E.D.?): Yes Comorbidities: Diabetes w/o Complication, Any Tumor E.D. Visits: 1 - Answers: Total Score: 10 Risk of Readmission: High Risk Care Management Discharge Reason for Hospitalization: Ankle Fx-repaired 03/10/[address] Delacruz Discharge Plan: Donna will return home when ready per MD. She will follow up with Dr. Delacruz, her PCP and her plan of care as prescribed including NWB status and equipment recommendations to include shower chair, 3 in 1 commode and FWW. She will also have new orders for [facility]; CM faxed referral and orders to the [facility]. Donna will transport home via private vehicle with a friend. Patient/Family Education Needs: Review discharge instructions, review of DME coordination-patient choice and insurance limitations, discuss Ask Me Three. Services Needed at Discharge: DME Agency (FWW, review of patient choice and insurance limitations for recommended bathroom equipment. ), Home Health Care Services (PT/OT)
--- NOTE | 2018-03-12 15:53 | PT.INTREAT ---
Date of service: 03/12/18 Time of Service: 15:53 PT Notes Inpatient Physical Therapy Treatment Note Date: 03/12/18 PRECAUTIONS: Fall, NWB on L SUBJECTIVE: Donna states that she feels like she is ready to go home. She reports that she has a friend bringing her commode to her home and a 4WW for her to use. OBJECTIVE: PAIN: No complaints of pain BED MOBILITY/TRANSFERS Sit-stand: S Stand-sit: S GAIT Assistive Device: FWW Weight bearing: NWB on L Assist: SBA Distance: 25'x2 STAIRS: Up/down 3 x 4using B rails and a hop to pattern with CGA/Min A; up/down 3 x 4 using 1 rail/SPC and a hop to pattern with CGA/Min A ASSESSMENT: Patient tolerated session without complaints of pain. She participated in stair training requiring CGA/Min A and cueing for technique for safety. Patient would benefit from continued gait and transfer training as well as stair training for improved ability to perform daily functional tasks. PLAN: Continue with PT's POC TREATMENT CODE/TIME: 30 minutes; TAx2
--- NOTE | 2018-03-12 15:57 | PTTR_ITS ---
Date of service: 03/12/18 Time of Service: 15:53 PT Notes Inpatient Physical Therapy Treatment Note Date: 03/12/18 PRECAUTIONS: Fall, NWB on L SUBJECTIVE: Donna states that she feels like she is ready to go home. She reports that she has a friend bringing her commode to her home and a 4WW for her to use. OBJECTIVE: PAIN: No complaints of pain BED MOBILITY/TRANSFERS Sit-stand: S Stand-sit: S GAIT Assistive Device: FWW Weight bearing: NWB on L Assist: SBA Distance: 25'x2 STAIRS: Up/down 3 x 4using B rails and a hop to pattern with CGA/Min A; up/ down 3 x 4 using 1 rail/SPC and a hop to pattern with CGA/Min A ASSESSMENT: Patient tolerated session without complaints of pain. She participated in stair training requiring CGA/Min A and cueing for technique for safety. Patient would benefit from continued gait and transfer training as well as stair training for improved ability to perform daily functional tasks. PLAN: Continue with PT's POC TREATMENT CODE/TIME: 30 minutes; TAx2
--- NOTE | 2018-03-13 07:42 | PT.INDS ---
Date of service: 03/13/18 Time of Service: 07:42 PT Notes Inpatient Physical Therapy Discharge Summary Date: 03/13/18 for 03/12/18 Dates of Service: 03/11/18-03/12/18 SUBJECTIVE: NT OBJECTIVE: 03/11/18-03/12/18 Bed Mobility/Transfers: Sit-stand: supervision with FWW Stand-sit: supervision Gait: SBA with FWW 25ftx2 NWB L LE. Stairs: up/down 3 steps with railing and cane CGA/MinAx1 Balance: Static Sitting: normal Dynamic Sitting: normal Static Standing: poor Dynamic Standing: poor Assessment: Pt is an 82yr old female s/p open reduction internal fixation left ankle by Dr. Delacruz 03/10/18. Patient was seen for 4 PT visits. Progressed from SBA standing transfers to supervision with FWW, from CGA gait with FWW 20ftx2 NWB L LE to SBA gait with FWW 25ftx2 NWB LLE, pt able to ascend/descend 3 steps with railing and cane with CGA/MinAx1. Pt was discharged to home setting, home PT recommended to continue strengthening and mobility training. Goals: Goals X1 week 1. Supine-Sit : independent 2. Sit-Supine : independent 3. Sit-Stand : supervision with FWW 4. Stand-Sit : supervision with FWW 5. Bed-Chair : supervision with FWW 6. Chair-Bed : supervision with FWW 7. Gait : supervision with FWW 30ft NWB L 8. Stairs up/down 3 steps with railing and cane, CGA Pt met goals # 3, 4, 8 prior to discharge DISCHARGE RECOMMENDATIONS: Home with home PT/OT, commode, FWW, shower chair. G Codes in the area mobility of walking and moving around:projected status GP [id number]. Discharge status (if discharging) GP [id number] CK Ghislaine Morales PT
== END 2018-03-12 15:30 | disposition home or self-care (01) | DRG 493 ==
LOC: ER 17:19 → SUR 18:00 → MS 21:27
PROVIDERS: Admitting Provider Orthopaedic Surgery; Emergency Provider Physician Assistant; PCP Nurse Practitioner Family; Visit Provider Orthopaedic Surgery
PROC: 0QSK04Z Reposition Left Fibula with Internal Fixation Device, Open Approach (ICD-10-PCS; CPT 27822; principal; 2018-03-10 17:25)
DX: S82.852B Displaced trimalleolar fracture of left lower leg, initial encounter for open fracture type I or II (principal); K92.1 Melena; V19.88XA Pedal cyclist (driver) (passenger) injured in other specified transport accidents, initial encounter; Y93.55 Activity, bike riding; E11.9 Type 2 diabetes mellitus without complications; I10 Essential (primary) hypertension; Z79.84 Long term (current) use of oral hypoglycemic drugs; Z60.2 Problems related to living alone
CPT/HCPCS: 27822; 36415; 80053; 86850; 86900; 86901; 93005; 96365; 96366; 96375; 97162; 97165; 97530; 97535; 99285; NC; 73600; 73610; 85014; 85018; 85025; 85610; 85730; 93010; 99284; J0690; J1885; J2405; J3490

== ENCOUNTER → 2018-03-11 09:20 | Outpatient (BNVA) | payer MEDICARE, SELFPAY | PROVIDERS: PCP Nurse Practitioner Family; Referring Provider Nurse Practitioner Family; Visit Provider Orthopaedic Surgery | DX: R69 Illness, unspecified (principal) ==

== ENCOUNTER 2018-03-26 11:31 | Outpatient (CLI) | payer MEDICARE, SELFPAY ==
--- NOTE | 2018-03-26 11:25 | DI.RAD_ITS ---
SYMPTOM/DIAGNOSIS: F/U ORIF LEFT ANKLE: Comparison is made with intraoperative images dated 03/10/18. There has been no change in the hardware in the distal tibia and fibula or change in fracture alignment. There is no ankle mortise widening or talar dome defect.
== END 2018-03-26 11:51 ==
PROVIDERS: PCP Nurse Practitioner Family; Referring Provider Nurse Practitioner Family; Visit Provider Orthopaedic Surgery
DX: S82.842D Displaced bimalleolar fracture of left lower leg, subsequent encounter for closed fracture with routine healing (principal); X58.XXXD Exposure to other specified factors, subsequent encounter; I10 Essential (primary) hypertension; E11.9 Type 2 diabetes mellitus without complications; Z79.84 Long term (current) use of oral hypoglycemic drugs
CPT/HCPCS: 73610

== ENCOUNTER 2018-04-23 11:15 | Outpatient (CLI) | payer MEDICARE, SELFPAY ==
--- NOTE | 2018-04-23 11:11 | DI.RAD_ITS ---
SYMPTOM/DIAGNOSIS: F/U ORIF LEFT ANKLE: Three views were obtained and show previously described internal fixation hardware of medial and lateral malleoli. Alignment appears essentially unchanged in comparison with previous examination of 03/26. There is apparent lucency surrounding the distal aspect of a fibulotibial screw indicating loosening.
== END 2018-04-23 11:35 ==
PROVIDERS: PCP Nurse Practitioner Family; Referring Provider Nurse Practitioner Family; Visit Provider Orthopaedic Surgery
DX: S82.852D Displaced trimalleolar fracture of left lower leg, subsequent encounter for closed fracture with routine healing (principal); Z96.7 Presence of other bone and tendon implants; E13.9 Other specified diabetes mellitus without complications; Z79.84 Long term (current) use of oral hypoglycemic drugs; I10 Essential (primary) hypertension; W18.30XD Fall on same level, unspecified, subsequent encounter
CPT/HCPCS: 73610

== ENCOUNTER 2018-10-15 11:29 | Outpatient (CLI) | payer MEDICARE, SELFPAY ==
--- NOTE | 2018-10-15 11:26 | DI.RAD_ITS ---
SYMPTOM/DIAGNOSIS: S/P LT ANKLE ORIF LEFT ANKLE: Four views were obtained and show tibiofibular fracture with plate, screw and pin fixation in place. Alignment appears unchanged in comparison with examination of 04/23/18. Note is made of a lucent halo of the tibiofibular fixation screw indicating loosening of this screw which traverses the tibiofibular joint.
== END 2018-10-15 11:49 ==
PROVIDERS: PCP Nurse Practitioner Family; Referring Provider Nurse Practitioner Family; Visit Provider Orthopaedic Surgery
DX: X58.XXXD Exposure to other specified factors, subsequent encounter; S82.852E Displaced trimalleolar fracture of left lower leg, subsequent encounter for open fracture type I or II with routine healing
CPT/HCPCS: 99213; 73610

== ENCOUNTER 2020-01-08 10:12 | Outpatient (REF) | payer MEDICARE, SELFPAY ==
[2020-01-08 21:19] LABS: Hemoglobin A1C 7.4 % (3.8-5.6)
[2020-01-08 21:36] LABS: ALT 44 U/L (14-59); AST 21 U/L (15-37); Alkaline Phosphatase 66 U/L (46-116); Anion Gap 7.7 mmol/L (3-11); BUN 24 mg/dL (7-18); Bilirubin, Total 0.5 mg/dL (0.2-1.0); CO2 30.3 mmol/L (21.0-32.0); CREATININE 1.12 mg/dL (0.55-1.02); Calcium 9.9 mg/dL (8.5-10.1); Calculated LDL 137 mg/dL (<100); Chloride 102 mmol/L (98-107); Cholesterol 210 mg/dL (<200); Estimated GFR 46.57 (mL/min/1.73m2); Glucose 154 mg/dL (74-106); HDL Cholesterol 31 mg/dL (40-60); Sodium 140 mmol/L (136-145); Total Protein 7.2 g/dL (6.4-8.2); Triglyceride 213 mg/dL (<150)
== END 2020-01-08 10:32 ==
LOC: NCHCN 10:12
PROVIDERS: PCP Nurse Practitioner Family; Visit Provider Family Medicine
DX: E11.9 Type 2 diabetes mellitus without complications (principal); I10 Essential (primary) hypertension; E78.5 Hyperlipidemia, unspecified
CPT/HCPCS: 80053; 80061; 83036

== ENCOUNTER 2020-01-11 19:57 | Outpatient (REF) | payer MEDICARE, SELFPAY ==
[2020-01-11 21:08] LABS: Anion Gap 8.5 mmol/L (3-11); BUN 28 mg/dL (7-18); CO2 28.5 mmol/L (21.0-32.0); CREATININE 1.36 mg/dL (0.55-1.02); Calcium 9.6 mg/dL (8.5-10.1); Chloride 100 mmol/L (98-107); Estimated GFR 37.23 (mL/min/1.73m2); Glucose 170 mg/dL (74-106); Potassium 5.7 mmol/L (3.5-5.1); Sodium 137 mmol/L (136-145)
== END 2020-01-11 20:17 ==
LOC: NCHCN 19:57
PROVIDERS: PCP Nurse Practitioner Family; Visit Provider Family Medicine
DX: E87.5 Hyperkalemia (principal); I10 Essential (primary) hypertension
CPT/HCPCS: 80048

== ENCOUNTER 2020-02-22 10:27 | Outpatient (REF) | payer MEDICARE, SELFPAY ==
[2020-02-22 20:58] LABS: Anion Gap 10.3 mmol/L (3-11); BUN 28 mg/dL (7-18); CO2 27.7 mmol/L (21.0-32.0); CREATININE 1.37 mg/dL (0.55-1.02); Calcium 9.6 mg/dL (8.5-10.1); Chloride 100 mmol/L (98-107); Estimated GFR 36.91 (mL/min/1.73m2); Glucose 191 mg/dL (74-106); Potassium 4.5 mmol/L (3.5-5.1); Sodium 138 mmol/L (136-145)
== END 2020-02-22 10:47 ==
LOC: NCHCN 10:27
PROVIDERS: PCP Nurse Practitioner Family; Visit Provider Family Medicine
DX: E87.5 Hyperkalemia (principal)
CPT/HCPCS: 80048

== ENCOUNTER 2020-11-25 16:06 | Outpatient (REF) | payer MEDICARE, SELFPAY ==
[2020-11-25 21:31] LABS: Abs Immature Grans 0.02 10^3/uL (0.0-0.06); Absolute Basophil Count 0.09 10^3/uL (0.0-0.2); Absolute Eosinophil Count 0.25 10^3/uL (0.0-0.7); Absolute Monocyte Count 0.64 10^3/uL (0.1-0.8); Absolute Neutrophil Count 3.96 10^3/uL (1.2-6.7); Basophils % 1.3; Eosinophils % 3.5; HCT 36.7 % (36.0-46.0); HGB 11.7 g/dL (11.2-15.7); Immature Grans % 0.3; Lymphocytes % 29.7; MCH 28.6 pg (27.0-33.0); MCHC 31.9 % (32.0-36.0); MCV 89.7 fL (80-95); MPV 11.6 fL (8.0-11.0); Monocytes % 9.1; Neutrophils % 56.1; Nucleated RBC 0 %; Platelet Count 262 10^3/uL (130-400); RBC 4.09 10^6/uL (3.93-5.22); RDW 14.2 % (11.7-14.6); WBC 7.06 10^3/uL (4.4-10.8)
[2020-11-25 22:00] LABS: ALT 45 U/L (14-59); AST 25 U/L (15-37); Albumin 3.9 g/dL (3.4-5.0); Alkaline Phosphatase 72 U/L (46-116); Anion Gap 8.5 mmol/L (3-11); BUN 27 mg/dL (7-18); Bilirubin, Total 0.3 mg/dL (0.2-1.0); CO2 28.5 mmol/L (21.0-32.0); CREATININE 1.1 mg/dL (0.55-1.02); Calcium 9.3 mg/dL (8.5-10.1); Calculated LDL 139 mg/dL (<100); Chloride 104 mmol/L (98-107); Cholesterol 212 mg/dL (<200); Estimated GFR 47.55 (mL/min/1.73m2); Glucose 167 mg/dL (74-106); HDL Cholesterol 34 mg/dL (40-60); Magnesium 1.6 mg/dL (1.8-2.4); Potassium 4.8 mmol/L (3.5-5.1); Sodium 141 mmol/L (136-145); Total Protein 7.1 g/dL (6.4-8.2); Triglyceride 199 mg/dL (<150)
== END 2020-11-25 16:07 | disposition home or self-care (01) ==
LOC: NCHCN 16:06
PROVIDERS: PCP Nurse Practitioner Family; Visit Provider Family Medicine
DX: I10 Essential (primary) hypertension (principal); E78.5 Hyperlipidemia, unspecified; E87.5 Hyperkalemia; E11.9 Type 2 diabetes mellitus without complications
CPT/HCPCS: 80053; 80061; 83735; 85025

== ENCOUNTER 2023-10-17 14:26 | Outpatient (REF) | payer MEDICARE, SELFPAY ==
[2023-10-17 15:25] LABS: Hemoglobin A1C 7.3 % (<5.7)
[2023-10-17 15:39] LABS: ALT 31 U/L (14-59); AST 23 U/L (15-37); Albumin 4.2 g/dL (3.4-5.0); Alkaline Phosphatase 58 U/L (46-116); Anion Gap 10.8 mmol/L (3-11); BUN 45 mg/dL (7-18); Bilirubin, Total 0.5 mg/dL (0.2-1.0); CO2 27.2 mmol/L (21.0-32.0); CREATININE 1.4 mg/dL (0.55-1.02); Calcium 9.7 mg/dL (8.5-10.1); Calculated LDL 76 mg/dL (<100); Chloride 103 mmol/L (98-107); Cholesterol 141 mg/dL (<200); Estimated GFR 36.87 (mL/min/1.73m2); Glucose 119 mg/dL (74-106); HDL Cholesterol 44 mg/dL (40-60); Potassium 5.6 mmol/L (3.5-5.1); Sodium 141 mmol/L (136-145); Total Protein 7.3 g/dL (6.4-8.2); Triglyceride 106 mg/dL (<150)
[2023-10-17 15:50] LABS: Vitamin D 25 Total 88.5 ng/mL (30-100)
== END 2023-10-17 14:27 | disposition home or self-care (01) ==
LOC: NCHCN 14:26
PROVIDERS: PCP Family Medicine; Visit Provider Family Medicine
DX: I10 Essential (primary) hypertension (principal); E11.9 Type 2 diabetes mellitus without complications; Z00.00 Encounter for general adult medical examination without abnormal findings; E78.5 Hyperlipidemia, unspecified
CPT/HCPCS: 80053; 80061; 82306; 83036

== ENCOUNTER 2024-03-23 16:50 | Outpatient (REF) | payer MEDICARE, SELFPAY ==
[2024-03-23 22:09] LABS: Hemoglobin A1C 7.8 % (<5.7)
== END 2024-03-23 16:51 | disposition home or self-care (01) ==
LOC: NCHCN 16:50
PROVIDERS: PCP Family Medicine; Visit Provider Family Medicine
DX: E11.9 Type 2 diabetes mellitus without complications (principal)
CPT/HCPCS: 83036

== ENCOUNTER 2024-10-06 12:17 | Outpatient (REF) | payer MEDICARE, SELFPAY ==
[2024-10-06 15:08] LABS: HCT 31.1 % (36.0-46.0); HGB 10.2 g/dL (11.2-15.7); MCH 27.3 pg (27.0-33.0); MCHC 32.8 % (32.0-36.0); MCV 83 fL (80-95); MPV 10.9 fL (8.0-11.0); Platelet Count 266 10^3/uL (130-400); RBC 3.73 10^6/uL (3.93-5.22); RDW 15.6 % (11.7-14.6); RDW-SD 47.2 fL; WBC 6.81 10^3/uL (4.4-10.8)
[2024-10-06 17:05] LABS: Hemoglobin A1C 7.2 % (<5.7)
[2024-10-06 17:49] LABS: ALT 37 U/L (14-59); AST 25 U/L (15-37); Alkaline Phosphatase 68 U/L (46-116); Anion Gap 9.7 mmol/L (3-11); BUN 36 mg/dL (7-18); Bilirubin, Total 0.4 mg/dL (0.2-1.0); CO2 26.3 mmol/L (21.0-32.0); CREATININE 1.4 mg/dL (0.55-1.02); Calcium 9.5 mg/dL (8.5-10.1); Calculated LDL 60 mg/dL (<100); Chloride 104 mmol/L (98-107); Cholesterol 127 mg/dL (<200); Estimated GFR 36.64 (mL/min/1.73m2); Glucose 137 mg/dL (74-106); HDL Cholesterol 40 mg/dL (>or=50); Potassium 5.2 mmol/L (3.5-5.1); Sodium 140 mmol/L (136-145); Total Protein 7.1 g/dL (6.4-8.2); Triglyceride 139 mg/dL (<150); Vitamin D 25 Total 96 ng/mL (30-100)
== END 2024-10-06 12:18 | disposition home or self-care (01) ==
LOC: NCHCN 12:17
PROVIDERS: PCP Family Medicine; Visit Provider Family Medicine
DX: N18.9 Chronic kidney disease, unspecified (principal); E11.9 Type 2 diabetes mellitus without complications; E55.9 Vitamin D deficiency, unspecified
CPT/HCPCS: 80053; 80061; 82306; 85027; 83036

== ENCOUNTER 2025-01-06 01:48 | Outpatient (CLI) | payer MEDICARE, SELFPAY ==
--- NOTE | 2025-01-06 | DI.US_ITS ---
Exam(s) US LOWER EXTREMITY VENOUS LT EXAM: US LOWER EXTREMITY VENOUS LT CLINICAL HISTORY: LT LEG SWELLING, M79.89, SOFT TISSUE DISORDER, ? DVT TECHNIQUE: Left lower extremity venous ultrasound performed using grayscale, color-flow, and spectral Doppler analysis. COMPARISON: No exams were available for comparison FINDINGS: The left common femoral, femoral and popliteal veins demonstrate normal compressibility, augmentation, and color Doppler. The posterior tibial veins are patent. The saphenofemoral junction is unremarkable. There is no evidence of a Pena cyst. The soft tissues are unremarkable. IMPRESSION: No evidence of a left lower extremity DVT. DATA REPOSITORY:
== END 2025-01-06 02:08 ==
PROVIDERS: PCP Family Medicine; Visit Provider Family Medicine
DX: M79.89 Other specified soft tissue disorders (principal)
CPT/HCPCS: 93971

== ENCOUNTER 2025-01-14 15:53 | Outpatient (CLI) | payer MEDICARE, SELFPAY ==
--- NOTE | 2025-01-14 13:25 | DI.RAD_ITS ---
Exam(s) XR ANKLE RT COMPLETE EXAM: XR ANKLE RT COMPLETE CLINICAL HISTORY: M25.71,M25.572 Pain RT LT ankle joints RT LT foot. TECHNIQUE: 2D digital imaging was performed. Three views. COMPARISON: CR XR ANKLE LT COMPLETE from 01/14/2025 FINDINGS: BONES: No acute fracture is present. No bony destructive lesion is seen. Calcaneal enthesophytes. JOINTS: The ankle mortise is normally aligned. Mild joint space narrowing and periarticular spurring. SOFT TISSUE: Faint vascular calcifications. Mild edema around the malleoli. IMPRESSION: Mild degenerative changes. DATA REPOSITORY: RADIATION DOSE DELIVERED:
--- NOTE | 2025-01-14 13:25 | DI.RAD_ITS ---
Exam(s) XR ANKLE LT COMPLETE EXAM: XR ANKLE LT COMPLETE CLINICAL HISTORY: M25.71,M25.572 Pain RT LT ankle joints RT LT foot TECHNIQUE: 2D digital imaging was performed. Three views. COMPARISON: No exams were available for comparison FINDINGS: BONES: No acute fracture is present. Hardware is again noted in the distal tibia and fibula which appears unchanged in alignment. No bony destructive lesion is seen. Prominent calcaneal enthesophytes. JOINTS:The ankle mortise is normally aligned. Mild to moderate joint space narrowing, greater medially. Spurring at the malleoli, greater medially. SOFT TISSUE: Mild edema around the malleoli. Vascular calcifications. IMPRESSION: Postsurgical and degenerative changes. Prominent calcaneal enthesophyte. DATA REPOSITORY: RADIATION DOSE DELIVERED:
== END 2025-01-14 16:13 ==
LOC: DI 15:54
PROVIDERS: PCP Family Medicine; Visit Provider Family Medicine
DX: M25.571 Pain in right ankle and joints of right foot (principal); M25.572 Pain in left ankle and joints of left foot; Z98.890 Other specified postprocedural states
CPT/HCPCS: 73610

== ENCOUNTER 2025-02-22 15:49 | Outpatient (REF) | payer MEDICARE, SELFPAY ==
[2025-02-22 14:50] LABS: Abs Immature Grans 0.02 10^3/uL (0.0-0.06); HCT 31.4 % (36.0-46.0); HGB 10.2 g/dL (11.2-15.7); Immature Grans % 0.3 %; MCH 27.8 pg (27.0-33.0); MCHC 32.5 % (32.0-36.0); MCV 86 fL (80-95); MPV 11.6 fL (8.0-11.0); Platelet Count 279 10^3/uL (130-400); RBC 3.67 10^6/uL (3.93-5.22); RDW 14.8 % (11.7-14.6); RDW-SD 46.6 fL; WBC 7.10 10^3/uL (4.4-10.8)
[2025-02-22 15:19] LABS: Hemoglobin A1C 6.9 % (<5.7)
[2025-02-22 15:20] LABS: ALT 29 U/L (14-59); AST 18 U/L (15-37); Albumin 4.2 g/dL (3.4-5.0); Alkaline Phosphatase 70 U/L (46-116); Anion Gap 9.5 mmol/L (3-11); BUN 28 mg/dL (7-18); Bilirubin, Total 0.4 mg/dL (0.2-1.0); CO2 26.5 mmol/L (21.0-32.0); Calcium 10.2 mg/dL (8.5-10.1); Chloride 102 mmol/L (98-107); Estimated GFR 36.41 (mL/min/1.73m2); Glucose 162 mg/dL (74-106); NT-proBNP 162 pg/mL (<300); Potassium 5.2 mmol/L (3.5-5.1); Sodium 138 mmol/L (136-145); Total Protein 7.4 g/dL (6.4-8.2)
== END 2025-02-22 15:50 | disposition home or self-care (01) ==
LOC: NCHCN 15:49
PROVIDERS: PCP Family Medicine; Visit Provider Family Medicine
DX: E11.9 Type 2 diabetes mellitus without complications (principal); I82.90 Acute embolism and thrombosis of unspecified vein
CPT/HCPCS: 80053; 83036; 83880; 85025

== ENCOUNTER 2025-03-01 02:54 | Outpatient (CLI) | payer MEDICARE, SELFPAY ==
--- NOTE | 2025-03-01 | DI.US_ITS ---
Exam(s) US LOWER EXTREMITY VENOUS RT EXAM: US LOWER EXTREMITY VENOUS RT CLINICAL HISTORY: EDEMA R60.0 EMBOLISM THROMBOSIS I82.90 PHLEBITIS THROMBOPHLEBITIS I80.9 TECHNIQUE: Grayscale, color, and doppler imaging of the deep venous system of the right lower extremity was performed. COMPARISON: US US LOWER EXTREMITY VENOUS LT from 01/06/2025 FINDINGS: There is no evidence of intraluminal thrombus and there is normal compression and augmentation demonstrated within the common femoral vein, femoral vein, and popliteal vein. In the ipsilateral calf the interrogated veins also exhibit normal compression/ augmentation properties. The ipsilateral saphenofemoral junction is patent. IMPRESSION: 1. No evidence of DVT in the right lower extremity. DATA REPOSITORY:
== END 2025-03-01 03:14 ==
LOC: DI 02:54
PROVIDERS: PCP Family Medicine; Visit Provider Family Medicine
DX: R60.0 Localized edema (principal)
CPT/HCPCS: 93971